=== PATIENT | male | born 1980 | race Caucasian/White ===

== ENCOUNTER 2021-06-20 21:04 | Emergency (ER) | payer OTHER ==
[2021-06-20 22:24] LABS: RED BLOOD COUNT 4.5 M/UL (4.20-5.50); WHITE BLOOD COUNT 6.3 K/UL (4.5-11.0)
[2021-06-20 22:44] LABS: BUN/CREATININE RATIO 19 (0-10)
== END 2021-06-21 09:55 | disposition home or self-care (01) ==
LOC: ER1 21:04
PROVIDERS: Emergency Medicine; Physician Assistant
DX: T65.91XA Toxic effect of unspecified substance, accidental (unintentional), initial encounter (principal); F17.290 Nicotine dependence, other tobacco product, uncomplicated
CPT/HCPCS: 80053; 80307; 85025; 93005; 96374; 99284; G0480; J2310